=== PATIENT | male | born 1980 ===

== ENCOUNTER 2018-07-01 08:43 | Day surgery (SDC) | payer OTHER ==
--- NOTE | 2018-06-30 01:46 | HP ---
AMENDED REPORT NOW INCLUDES DESIGNATED COSIGNER PREOPERATIVE HISTORY AND PHYSICAL: DATE OF ADMISSION/SURGERY: 07/01/18 ATTENDING SURGEON: Dr. Yulia Fabian * (DICTATED BY JERSON MILLAN) PROCEDURE: Left should arthroscopic decompression, debridement, subpectoral biceps tenodesis, possible arthroscopic rotator cuff repair. CHIEF COMPLAINT: Left shoulder pain. HISTORY OF PRESENT ILLNESS: Yasir is a 37-year-old male, who presents to the clinic for left shoulder pain due to biceps tendonitis impingement. He failed conservative measures, therefore agreed to undergo a left shoulder arthroscopic decompression, debridement, and subpectoral biceps tenodesis, and possible arthroscopic rotator cuff repair with Dr. Fabian on 07/01/18. PAST MEDICAL HISTORY: No current problems. PAST SURGICAL HISTORY: Hernia repair, vasectomy, and right ACL reconstruction. The patient denies complications of anesthesia. MEDICATIONS: No active medications. ALLERGIES: SULFA ANTIBIOTICS. FAMILY HISTORY: Positive for diabetes, hypertension. Denies family history of DVT or PE. SOCIAL HISTORY: He lives with his spouse. He works as a professor. He denies tobacco use. He reports occasional alcohol consumption. He is right hand dominant. REVIEW OF SYSTEMS: A 14-point review of systems was reviewed with the patient. Positive for current complaint, otherwise negative. Denies fever, chills, chest pain, shortness of breath, history of bleeding disorder, history of DVT or PE. PHYSICAL EXAMINATION GENERAL: A 37-year-old well-developed, well-nourished male, in no acute distress. VITALS: Height 69.5, weight 204, pulse 64, blood pressure 106/72, temperature 97.6. HEENT: Normocephalic, atraumatic. PERRLA. Throat clear. NECK: Supple. PULMONARY: Lungs are clear to auscultation bilaterally. No wheezing, rhonchi, or rales. CARDIO: Regular rat and rhythm. S1, S2. No murmurs, gallops, or rubs. No edema. ABDOMEN: Positive bowel sounds. Soft, nontender. NEURO: Alert and oriented x3. Cranial nerves grossly intact. MUSCULOSKELETAL: Left upper extremity. Skin is intact. No warmth or erythema. Tenderness of the bicipital groove. Forward flexion, abduction to 160 , external rotation to 70, full range of motion of the elbow, wrist, and hand. +2 radial pulse. Sensation is intact to light touch distally. +4/5 strength to rotator cuff testing obtained. Positive impingement, Speed, [place]iko , [place]. DIAGNOSTIC STUDIES: MRI revealed rotator cuff is grossly intact with some subacromial impingement and a perilabral cyst with superior labral tear. IMPRESSION: Left shoulder impingement and biceps tendonitis. PLAN: The patient is scheduled to undergo a left shoulder arthroscopic decompression, debridement, subpectoral biceps tenodesis, and possible arthroscopic rotator cuff repair with Dr. Fabian on 07/01/18. He will follow up in 10 to 14 days postop for follow up and suture removal. Percocet will be used for postop pain management. JERSON MILLAN [id number]/[facility] #: [id number] MTDAlfredo
[~2018-07-01 08:43] MED LIST: Buffered Lidocaine 1% SYRIN* 1 ML/SYRINGE INTRADERM ONE; Dexamethasone IV* 4 MG/ML 1 ML (4 MG) IV SLOW PU ONE; Famotidine IV* 10 MG/ML 2 ML (20 mg) IV ONE; Lactated Ringers 1000 ML Bag* 1,000 ML IV SCH
[2018-07-01] MEDS ORDERED: ceFAZolin 2 GM PREMIX in ORs 2 GM/50 ML BAG IVPB ONE (08:55)
[2018-07-01] MEDS ORDERED: Dexamethasone IV* 4 MG/ML 1 ML (4 MG) ONE (08:56)
[2018-07-01] MEDS ORDERED: Famotidine IV* 10 MG/ML 2 ML (20 mg) ONE (08:56)
[2018-07-01] MEDS ORDERED: Bupivacaine 0.25% SDV* 30 ML ONE (09:54)
[2018-07-01] MEDS ORDERED: ROPIVACAINE 5 MG/ML 30 ML BTL (0.5%) ONE (10:10)
[2018-07-01] MEDS ORDERED: Ondansetron INJ* 2 MG/ML VIAL ONE (10:22)
[2018-07-01] MEDS ORDERED: Midazolam* 1 MG/ML 5 ML VIAL (5 MG) ONE (10:22)
[2018-07-01] MEDS ORDERED: fentaNYL* 50 MCG/ML 2 ML VIAL (100 MCG VIAL) ONE ×3 (10:22→11:16)
[2018-07-01] MEDS ORDERED: Lidocaine 2% PF * 5 ML VIAL ONE (10:22)
[2018-07-01] MEDS ORDERED: Propofol* 10 MG/ML 20 ML BTL ONE (10:22)
[2018-07-01] MEDS ORDERED: Atracurium* 10 MG/ML 10 ML VIAL ONE (10:24)
[2018-07-01] MEDS ORDERED: methylPREDNISolone ACETATE 80* 80 MG/ML 1 ML VIAL ONE (11:30)
[2018-07-01] MEDS ORDERED: DiMENhydriNATE IV* 50 MG/ML VIAL IV PUSH PRN (11:45)
[2018-07-01] MEDS ORDERED: HYDROmorphone INJ1* 1 MG/ML SYRINGE IV PRN (11:45)
[2018-07-01] MEDS ORDERED: Naloxone* 0.4 MG/ML 1 ML VIAL IV PRN (11:45)
[2018-07-01] MEDS ORDERED: Ondansetron INJ* 2 MG/ML VIAL IV PRN (11:45)
[2018-07-01] MEDS ORDERED: oxyCODONE/Acetamin 5/325 MG* TAB PO PRN (11:45)
[2018-07-01] MEDS ORDERED: fentaNYL* 50 MCG/ML 2 ML VIAL (100 MCG VIAL) IV PRN (11:45)
[2018-07-01 13:41] VITALS: BP 130/89
--- NOTE | 2018-07-01 23:51 | OP ---
CC: PCP, Chino Camara MD * DATE OF OPERATION: 07/01/18 - [facility] DATE OF : 78 SURGEON: Yulia Fabian MD. ASSISTANTS: JERSON Perez. An marketing assistant retail division was needed for the entirety of the case to help with positioning, retraction, and was utilized throughout all portions of the case. ANESTHESIOLOGIST: Dr. London ANESTHESIA: General and interscalene block. PRE-OP DIAGNOSES: Left shoulder impingement and flap tear. POST-OP DIAGNOSES: Left shoulder impingement and flap tear. OPERATIVE PROCEDURE: Left shoulder arthroscopy with: 1. Extensive glenohumeral debridement. 2. Decompression with acromioplasty. 3. Open subpectoral biceps tenodesis. 4. Subacromial injection with 80 mg Depo-Medrol. COMPLICATIONS: None. ESTIMATED BLOOD LOSS: Minimal. IMPLANTS USED: One Q-Fix 2.8 mm. INDICATIONS: Yasir Vogel is a 37-year-old male with persistent shoulder pain that is refractory to conservative management. He also had some cervical radicular type of pain that is being addressed by another doctor. After extensive discussion, risks and benefits to surgical versus nonoperative treatment, he has elected to proceed with surgical treatment. Risks and benefits include, but are not limited to bleeding, infection, damage to nerves, vessels, and surrounding structures, wound nonhealing, persistent pain, need for further surgery, scarring, stiffness, incomplete relief of symptoms, risks of anesthesia. DESCRIPTION OF PROCEDURE: The patient was greeted in the preoperative area by the attending surgeon. Correct extremity was marked and consent was confirmed. Patient underwent interscalene nerve block by the anesthesiologist, after which the patient was brought back to the operating suite where he was placed in a supine position on the operating table. He underwent general anesthesia and endotracheal intubation, after which he was placed in the right lateral decubitus position. All bony prominences were padded, he was secured with a pegboard. The left arm was draped unsterile with 10 pounds of traction. Left shoulder was then prepped and draped in the usual sterile fashion with chlorhexidine soap, scrub, and alcohol wipe, and a final prep with ChloraPrep. After appropriate surgical pause indicating side, site, procedure, and administration of antibiotics, the standard postero-lateral portal was made sharply with an 11-blade. The scope was then introduced into the joint and the joint was examined. There were grade 0 to 1 changes of the glenohumeral joint. There was significant synovitis, particularly anteriorly. He had a cord-like MGHL. The superior labrum was obviously torn and the biceps anchor was not stable. The biceps had inflammation behind it. The under surface of the rotator cuff looked quite good and there was no evidence of instability. Inferior recess was intact. The anterior portal was made in an outside-in fashion. A shaver was used to debride back the anterior, posterior, and superior labrum. Biceps was then tenotomized for later tenodesis. The subscapularis was intact. The inferior recess was intact. Attention was then directed to the subacromial space. With the scope positioned in the subacromial space, the lateral portal was made in an outside-in fashion. There was abundant synovitis and bursitis that was present. This was debrided back using the shaver. Electrocautery device was used to maintain hemostasis at all time. There was very friable tissue. The undersurface of the acromion was then skeletonized using electrocautery device and a 4-0 oval carmelita was then used to do an acromioplasty. The rotator cuff was seen on the bursal side. The decision was made to treat this with a subacromial injection after the bursectomy was done. Once this was done and all fluid was removed, an 18-gauge spinal needle was placed for later placement of the 80 mg of Depo-Medrol. Attention was directed to the biceps. The anterior aspect of the shoulder was prepped again using the ChloraPrep, a 15- blade was used to make an incision to expose the pec tendon. Once this was identified, the remainder of the dissection was done bluntly. The pec was elevated and the biceps palpated in the groove. This was then brought through the wound and examined. There was abundant synovitis present. The groove was then prepared in the usual fashion with electrocautery device, red ball rasp, and osteotome. The Q-Fix was then deployed with excellent purchase unicortically and then passed through the sutures in a Hany-Reed type configuration. The biceps was then shuttled through the wound, excess stump was excised, and it was secured. The wounds was copiously irrigated with sterile saline. The anterior wound was closed with 3-0 Monocryl in layers. Portals were closed with the use of 3-0 nylon. Sterile dressings were applied. A Cryo/Cuff was applied. He was awoken from anesthesia and transferred to the PACU in stable condition. POSTOPERATIVE PLAN: He will be in a sling for 4 weeks. He will be discharged on pain medication. He will start therapy within a week. DVT prophylaxis was considered, but deferred due to no previous personal or family history. I will see the patient back in 10 to 14 days. [id number]/[facility] #: [id number] MTDAlfredo
== END 2018-07-01 13:35 | disposition home or self-care (01) ==
LOC: OREAST 08:43
PROVIDERS: ATTEND Orthopaedic Surgery
DX: M75.42 Impingement syndrome of left shoulder (principal); M75.22 Bicipital tendinitis, left shoulder; M24.812 Other specific joint derangements of left shoulder, not elsewhere classified; G89.18 Other acute postprocedural pain
CPT/HCPCS: 88304; C1776; J0690; J1040; J1100; J2250; J2405; J2704; J2795; J3010; J3490